=== PATIENT | male | born 1995 | race Asian ===

== ENCOUNTER 2017-06-12 17:51 | Emergency (ER) | payer SELFPAY, OTHER ==
[2017-06-12 19:04] LABS: BILIRUBIN,URINE NEGATIVE (NEG); CLARITY,URINE CLEAR; COLOR,URINE YELLOW; GLUCOSE,URINE NEGATIVE (NEG); NITRITE,URINE NEGATIVE (NEG); PROTEIN,URINE NEGATIVE (NEG-TRACE); UROBILINOGEN,URINE 0.2 mg/dL (0.2 mg/dL)
[2017-06-12 19:15] LABS: BACTERIA,URINE 0 /HPF (0-FEW); RBC,URINE 0 /HPF (0-2); SQUAMOUS EPITHELIAL CELL,UR OCC /LPF; WBC,URINE 0 /HPF (0-4)
== END 2017-06-12 19:54 | disposition home or self-care (01) ==
LOC: ER 19:54
DX: S29.012A Strain of muscle and tendon of back wall of thorax, initial encounter (principal); X58.XXXA Exposure to other specified factors, initial encounter; Y93.89 Activity, other specified; Y92.89 Other specified places as the place of occurrence of the external cause; Y99.8 Other external cause status
CPT/HCPCS: 81001; 99283

== ENCOUNTER 2018-05-13 17:51 | Emergency (ER) | payer SELFPAY ==
[~2018-05-13] VITALS: Ht 149.9 cm; Wt 59.0 kg
[~2018-05-13 17:51] MED LIST: AMOX875T PO; HYDR-3164 PO; IBUP-1060 PO
[2018-05-13 18:55] VITALS: BP 126/65
--- NOTE | 2018-05-13 19:36 | PHYS DOC ---
Past Medical History Past Medical History: No Pertinent History Past Surgical History: No Surgical History Alcohol Use: None Drug Use: None Adult General Chief Complaint Chief Complaint: BACK PAIN - NO INJURY [facility] HPI Patient is a 22-year-old male who presents with complaint of pain in his mid thoracic region that he states has been present for about a month. He states that he lifts a lot of heavy boxes at work but is not aware of any injury. He states the pain is just like a deep ache but sometimes that sharp. He states the pain is worsened with certain movements and sometimes with deep breathing. He rates pain as being moderate. He denies any loss of bowel or bladder control. Review of Systems Review of Systems Constitutional: Denies fever or chills [] Respiratory: Denies cough or shortness of breath [] Cardiovascular: No additional information not addressed in HPI [] Musculoskeletal: Complains of left sided mid thoracic pain [] Integument: Denies rash or skin lesions [] Neurologic: Denies headache, focal weakness or sensory changes [] Allergies Allergies Allergies Coded Allergies Type Severity Reaction Last Updated Verified No Known Drug Allergies 04/22/16 No Physical Exam Physical Exam Constitutional: Well developed, well nourished, no acute distress, non-toxic appearance. [] Neck: Normal range of motion, no tenderness, supple, no stridor. [] Cardiovascular:Heart rate regular rhythm, no murmur [] Lungs & Thorax: Bilateral breath sounds clear to auscultation [] Back: There is tenderness palpation in the left mid thoracic paraspinal musculature. [] Current Patient Data Vital Signs Vital Signs Date Time Temp Pulse Resp B/P (MAP) Pulse Ox O2 Delivery O2 Flow Rate FiO2 05/13/18 18:55 98.1 62 16 126/65 (85) 99 Room Air 98.1 EKG EKG [] Radiology/Procedures Radiology/Procedures [] Impressions: Two-view chest x-ray and thoracic spine films demonstrate no acute abnormalities. Course & Med Decision Making Course & Med Decision Making Pertinent Labs and Imaging studies reviewed. (See chart for details) [] Dragon Disclaimer Dragon Disclaimer This electronic medical record was generated, in whole or in part, using a voice recognition dictation system. Departure Departure Impression: Primary Impression: Thoracic myofascial strain Disposition: HOME, SELF-CARE Condition: STABLE Referrals: NO PCP (PCP) Patient Instructions: Thoracic Strain Scripts Diclofenac Sodium (DICLOFENAC SODIUM) 50 Mg Tablet. 1 TAB PO BID PRN for PAIN, #20 TAB Prov: ANTONETTE SCHAEFER Jr. DO 05/13/18 Tramadol Hcl (TRAMADOL HCL) 50 Mg Tablet 50 MG PO Q6HRS PRN for PAIN, #12 TAB Prov: ANTONETTE SCHAEFER Jr. DO 05/13/18 Cyclobenzaprine Hcl (CYCLOBENZAPRINE HCL) 5 Mg Tablet 5 MG PO PRN TID PRN for MUSCLE SPASMS, #15 TAB Prov: ANTONETTE SCHAEFER Jr. DO 05/13/18 Problem Qualifiers Primary Impression: Thoracic myofascial strain Encounter type: initial encounter Qualified Codes: S29.019A - Strain of muscle and tendon of unspecified wall of thorax, initial encounter ANTONETTE SCHAEFER Jr. DO May 13, 2018 19:36
[2018-05-13] MEDS ORDERED: TRAM50TA PO (19:53)
[2018-05-13] MEDS ORDERED: DICL50TA4 PO (19:53)
[2018-05-13] MEDS ORDERED: CYCL5TAB PO (19:53)
--- NOTE | 2018-05-13 19:57 | RAD ---
PROCEDURE: CHEST PA LATERAL CLINICAL INDICATION: Injury,back and chest wall pain COMPARISON: None FINDINGS: No pneumothorax identified. Cardiac and mediastinal contours unremarkable. No pulmonary consolidation or acute airspace disease. No acute osseous abnormalities identified. IMPRESSION: No pulmonary consolidation or acute airspace disease. Electronically signed by: Jose Magana DO (05/13/2018 7:54 PM) [facility]
--- NOTE | 2018-05-13 20:05 | RAD ---
Indication: Injury, back and chest wall pain TECHNIQUE: 3 views of the thoracic spine COMPARISON: None FINDINGS: The thoracic spine is in normal anatomic alignment. No compression deformities. Visualized lungs are clear. Heart is normal in size. No degenerative changes. IMPRESSION: No acute findings. Electronically signed by: Jose Magana DO (05/13/2018 8:02 PM) [facility]
== END 2018-05-13 20:11 | disposition home or self-care (01) ==
LOC: ER 17:51
DX: S29.012A Strain of muscle and tendon of back wall of thorax, initial encounter (principal); R07.89 Other chest pain; X50.0XXA Overexertion from strenuous movement or load, initial encounter; Y93.89 Activity, other specified; Y92.89 Other specified places as the place of occurrence of the external cause; Y99.0 Civilian activity done for income or pay
CPT/HCPCS: 71046; 72072; 99283

== ENCOUNTER 2019-01-02 17:19 | Emergency (ER) | payer SELFPAY ==
[~2019-01-02] VITALS: Ht 149.9 cm; Wt 54.4 kg
[~2019-01-02 17:19] MED LIST changes: +CYCL5TAB PO; +DICL50TA4 PO; +TRAM50TA PO
[2019-01-02 17:30] VITALS: BP 130/75
--- NOTE | 2019-01-02 18:04 | PHYS DOC ---
Past Medical History Past Medical History: No Pertinent History Past Surgical History: No Surgical History Alcohol Use: None Drug Use: None Adult General Chief Complaint Chief Complaint: PLEURISY [facility] HPI Patient is a 23 year old male who presents to the ER with complaints of right sided chest pain that occurs on inspiration. Patient states that the pain started today and he describes it as sharp chair. Patient denies any recent travel, medical history, palpitations, diaphoresis, abdominal pain, nausea, or vomiting. He denies any pain unless he takes a deep breath in which he rates the pain a 5 out of 10 on the pain scale. Patient states he did have a cough a few days ago but denies any coughing today. He denies any shortness of breath or wheezing also. Review of Systems Review of Systems Constitutional: Denies fever or chills [] Eyes: Denies change in visual acuity, redness, or eye pain [] HENT: Denies nasal congestion or sore throat [] Respiratory: Denies cough or shortness of breath; see HPI [] Cardiovascular: No additional information not addressed in HPI [] GI: Denies abdominal pain, nausea, or vomiting Musculoskeletal: Denies back pain or joint pain [] Integument: Denies rash or skin lesions [] Neurologic: Denies headache, Complete systems were reviewed and found to be within normal limits, except as documented in this note. Allergies Allergies Allergies Coded Allergies Type Severity Reaction Last Updated Verified No Known Drug Allergies 04/22/16 No Physical Exam Physical Exam Constitutional: Well developed, well nourished, no acute distress, non-toxic appearance. [] HENT: Normocephalic, atraumatic, bilateral external ears normal, nose normal. [] Eyes: PERRLA, EOMI, conjunctiva normal, no discharge. [] Neck: Normal range of motion, no tenderness, supple, no stridor. [] Cardiovascular:Heart rate regular rhythm, no murmur [] Lungs & Thorax: Bilateral breath sounds clear to auscultation; chest non-tender to palpation [] Skin: Warm, dry, no erythema, no rash. [] Back: No tenderness Extremities: No cyanosis, no clubbing, ROM intact, no edema. [] Neurologic: Alert and oriented X 3, no focal deficits noted. [] Psychologic: Affect normal, judgement normal, mood normal. [] Current Patient Data Vital Signs Vital Signs Date Time Temp Pulse Resp B/P (MAP) Pulse Ox O2 Delivery O2 Flow Rate FiO2 01/02/19 17:30 98.2 52 15 130/75 (93) 97 Room Air 98.2 EKG EKG [] Radiology/Procedures Radiology/Procedures CXR negative for any acute findings. [] Course & Med Decision Making Course & Med Decision Making Pertinent Labs and Imaging studies reviewed. (See chart for details) dx: pleurisy CR negative for acute findings. PERC negative. Low suspicion for PE. CXR normal RX for naproxen. FOllow up wtih PCP in 1-2 days, return to ER if symptoms worsen. Patient verbalized an understanding of home care, medications, follow-up, and return to ED instructions and was in agreement with the plan of care. [] Dragon Disclaimer Dragon Disclaimer This electronic medical record was generated, in whole or in part, using a voice recognition dictation system. Departure Departure Impression: Primary Impression: Pleurisy without effusion Disposition: HOME, SELF-CARE Condition: STABLE Referrals: NO PCP (PCP) Patient Instructions: Pleurisy, [id number] Additional Instructions: Fill prescription(s) and use as directed. Alternate Tylenol or ibuprofen as needed for pain/fever. Increase clear fluids. Avoid airway triggers such as smoke, fragrance, dust, and pollen. May take [id number] cough suppressants as needed. Follow-up with your primary care doctor if symptoms persist, return to the ER if symptoms worsen. Scripts Naproxen (NAPROXEN) 500 Mg Tablet 1 TAB PO BID PRN for PAIN for 10 Days, #20 TAB 0 Refills Prov: SADA MYERS CLINICAL TRIALS ASSISTANT 01/02/19 PERC Rule for PE PERC Rule for PE PERC Rule for PE Response (Comments) Value Age > 50: No 0 HR > 100: No 0 Sa02 on room air <95%: No 0 Unilateral leg swelling: No 0 Hemoptysis: No 0 Recent surgery or trauma: No 0 Prior PE or DVT: No 0 Hormone use: No 0 Total 0 SADA MYERS CLINICAL TRIALS ASSISTANT Jan 02, 2019 18:04
[2019-01-02] MEDS ORDERED: NAPR-514 PO (18:45)
--- NOTE | 2019-01-03 00:49 | RAD ---
PROCEDURE: CHEST PA LATERAL CLINICAL INDICATION: Right-sided pain with inspiration. Recent cough. COMPARISON: None FINDINGS: No pneumothorax identified. Cardiac and mediastinal contours unremarkable. No pulmonary consolidation or acute airspace disease. No acute osseous abnormalities identified. IMPRESSION: No pulmonary consolidation or acute airspace disease. Electronically signed by: Jose Magana DO (01/03/2019 12:46 AM) [id number]
== END 2019-01-02 19:00 | disposition home or self-care (01) ==
LOC: ER 17:19
DX: R09.1 Pleurisy (principal)
CPT/HCPCS: 71046; 99284